=== PATIENT | male | born 1985 | race Asian ===

== ENCOUNTER → 2017-06-21 | Emergency (ER) | payer SELFPAY ==
[~2017-06-21] VITALS: Ht 172.7 cm; Wt 68.0 kg
[~2017-06-21] MED LIST: TDAP [DIPH/PERTUSSIS/TET] 0.5 ML VIAL IM ONE
[2017-06-21 23:00] VITALS: BP 139/95
--- NOTE | 2017-06-21 23:18 | NUR ---
AT BEDSIDE. CLOSING LACERATION ON LT ARM.
== END | disposition home or self-care (01) ==
LOC: ER 22:47
DX: S61.512A Laceration without foreign body of left wrist, initial encounter (principal); W45.8XXA Other foreign body or object entering through skin, initial encounter; Y93.89 Activity, other specified; Y92.89 Other specified places as the place of occurrence of the external cause; Y99.8 Other external cause status
CPT/HCPCS: 12001; 90471; 90715; 99283; A4606; A6402; A6403; Z7610

== ENCOUNTER 2022-03-05 00:54 | Emergency (ER) | payer MEDICAID ==
[~2022-03-05] VITALS: Ht 172.7 cm; Wt 72.6 kg
--- NOTE | 2022-03-05 01:02 | NUR ---
BIBFRIEND C/O LAC TO LEFT GREAT TOE AROUND 10 PM. PT A/OX4. TOLERATING R/A WELL WITH NO SOB. CONNECTED PT TO POX AND MONITOR. SAFETY MEASURES IN PLACE.
[2022-03-05] MEDS ORDERED: GELATIN SPONGE,ABSORBABLE 1 SPONGE SPONGE TP ONE (01:05)
--- NOTE | 2022-03-05 01:05 | NUR ---
DRESSING APPLIED TO LEFT GREAT TOE
--- NOTE | 2022-03-05 02:44 | NUR ---
Patient discharged to home in stable condition. Verbal after care instructions given. Patient verbalizes understanding of instruction. PT ambulatory with a steady gait. Dressing clean and intact.
[2022-03-05 02:48] VITALS: BP 121/64
== END 2022-03-05 03:00 | disposition home or self-care (01) ==
LOC: ER 00:57
DX: M25.074 Hemarthrosis, right foot (principal); Z90.89 Acquired absence of other organs

== ENCOUNTER 2022-06-24 13:24 | Emergency (ER) | payer MEDICAID ==
[~2022-06-24] VITALS: Ht 172.7 cm; Wt 73.9 kg
--- NOTE | 2022-06-24 14:10 | NUR ---
C/O RLQ abdominal pain x 2 weeks, diarrhea last week.
--- NOTE | 2022-06-24 14:29 | NUR ---
LAC #20, BLOOD DRAWN AND COLLECTED BY PHLEB AT BEDSIDE
[2022-06-24] MEDS ORDERED: IV NS 0.9% 1,000 ML BAG IV ONE (14:30)
[2022-06-24] MEDS ORDERED: IOHEXOL-300 100 ML VIAL IV ONE (14:38)
[2022-06-24] MEDS ORDERED: IV NS 0.9% 250 ML IV ONE (14:38)
[2022-06-24 14:58] LABS: BASOPHILS % (AUTO) 0.3 % (0.0-2.0); EOSINOPHILS % (AUTO) 0.7 % (0.0-6.0); HEMATOCRIT 46 % (39-51); HEMOGLOBIN 14.6 g/dL (13.5-17.5); LYMPHOCYTES # (AUTO) 0.9 K/uL (0.8-4.8); LYMPHOCYTES % (AUTO) 22.1 % (20.0-44.0); MEAN CORPUSCULAR HGB CONC 32 g/dl (31.0-36.0); MEAN CORPUSCULAR VOLUME 73 fL (80-96); MONOCYTES # (AUTO) 0.4 K/uL (0.1-1.30); MONOCYTES % (AUTO) 9.1 % (2.0-12.0); NEUTROPHILS # (AUTO) 2.8 K/uL (1.8-8.9); NEUTROPHILS % (AUTO) 67.8 % (43.0-81.0); PLATELET COUNT (AUTO) 309 K/uL (150-450); RED BLOOD CELL COUNT(AUTO) 6.27 MIL/uL (4.5-6.0); WHITE BLOOD COUNT (AUTO) 4.2 K/uL (4.3-11.0)
[2022-06-24 15:20] LABS: ALBUMIN 4.2 g/dL (3.4-5.0); BILIRUBIN,DIRECT 0.1 mg/dL (0.0-0.2); BILIRUBIN,TOTAL 0.6 mg/dL (0.2-1.0); CALCIUM, SERUM 8.8 mg/dL (8.5-10.1); CREATININE 0.8 mg/dL (0.6-1.3); POTASSIUM 3.6 mmol/L (3.5-5.1); TOTAL PROTEIN, SERUM 8.1 g/dL (6.4-8.2)
[2022-06-24] MEDS ORDERED: FAMO-131 PO (15:57)
[2022-06-24] MEDS ORDERED: ONDA4TAB5 PO (15:57)
--- NOTE | 2022-06-24 16:00 | NUR ---
IV removed. Catheter intact and site benign. Pressure and 4x4 applied to site. No bleeding noted.
--- NOTE | 2022-06-24 16:05 | NUR ---
Patient discharged to home in stable condition. Written and verbal after care instructions given. Patient verbalizes understanding of instruction.
[2022-06-24 16:06] VITALS: BP 134/70
[2022-06-25 04:07] LABS: NEUTROPHILS % (MANUAL) 61 (42-76)
[2022-06-25 04:08] LABS: BAND % (MANUAL) 7 % (0.0-5.0); BASOPHILS % (MANUAL) 0 % (0.0-2.0); EOSINOPHILS % (MANUAL) 0 % (0-4); LYMPHOCYTES % (MANUAL) 23 % (16-48); MONOCYTES % (MANUAL) 9 % (0-11.0)
== END 2022-06-24 16:06 | disposition home or self-care (01) ==
LOC: ER 13:27
DX: R10.31 Right lower quadrant pain (principal); Z90.89 Acquired absence of other organs; Z88.1 Allergy status to other antibiotic agents; Z88.6 Allergy status to analgesic agent
CPT/HCPCS: 99285; 74177; 96360; 85025; 80048; 83690; 80076; 36415; 85007; J7030; J7050; Q9967